=== PATIENT | female | born 1965 ===

== ENCOUNTER → 2022-04-02 11:00 | Outpatient (CLI) | payer OTHER | END | disposition home or self-care (01) | LOC: SONOGRAMA 11:00 | PROVIDERS: ATTEND Pathology Anatomic Pathology & Clinical Pathology | DX: E06.3 Autoimmune thyroiditis (principal); D34 Benign neoplasm of thyroid gland; E04.9 Nontoxic goiter, unspecified; E04.2 Nontoxic multinodular goiter ==